=== PATIENT | female | born 1940 | race Caucasian/White ===

== ENCOUNTER → 2023-03-31 | Outpatient (CLI) | payer MEDICARE, BC ==
--- NOTE | 2023-04-01 07:30 | BD ---
EXAMINATION TYPE: Axial Bone Density DATE OF EXAM: 03/31/2023 CLINICAL HISTORY: 82 years old Female. ICD-10 CODE: M81.0 OSTEOPOROSIS Height: 63.5 Weight: 158.4 FRAX RISK QUESTIONS: Alcohol (3 or more units per day): no Family History (Parent hip fracture): no Glucocorticoids (More than 3mos): no (Ex: prednisone, prednisolone, methylprednisolone, dexamethasone, and hydrocortisone). History of Fracture in Adulthood: no Secondary Osteoporosis: 1. Type 1 Diabetes: no 2. Hyperthyroidism: no 3. Menopause before 45: no 4. Malnutrition: no 5. Chronic liver disease: no Rheumatoid Arthritis: no Current Tobacco Use: no RISK FACTORS HISTORY OF: Surgery to Spine/Hip(right/left)/Wrist (right/left): no Family History of Osteoporosis: no Active: no Diet low in dairy products/other sources of calcium: yes Postmenopausal woman: yes Lost more than 2 inches in height since high school: no Frequent falls: yes MEDICATIONS: Additional History: EXAM MEASUREMENTS: Bone mineral densitometry was performed using the [employer] System. Bone mineral density as measured about the Lumbar spine is: ----- L1-L4(G/cm2): 1.481 T Score Values are as follows: ----- L1: 1.0 ----- L2: 3.9 ----- L3: 3.5 ----- L4: 1.9 ----- L1-L4: 2.5 Z Score Values are as follows: ----- L1: 2.7 ----- L2: 5.5 ----- L3: 5.2 ----- L4: 3.5 ----- L1-L4: 4.2 Bone mineral density : baseline Bone mineral density about the R hip (g/cm2): 0.896 Bone mineral density about the L hip (g/cm2): 0.855 T Score values are as follows: -----R Neck: -1.6 -----L Neck: -2.2 -----R Total: -0.9 -----L Total: -1.2 Z Score values are as follows: -----R Neck: 0.6 -----L Neck: 0.0 -----R Total: 1.2 -----L Total: 0.9 Bone mineral density : baseline FRAX%s: The graph provided illustrates a 17.3% chance for a major osteoporotic fx and a 5.7% chance f or the hips probability for fx in 10 years time. IMPRESSION: Osteopenia (T Score between -2.5 and -1). There is slightly increased risk of fracture and the patient may be considered for treatment. Re-Screen 2-5 years. NOTE: T-SCORE=SD OF THE YOUNG ADULT MEAN.
--- NOTE | 2023-04-02 15:00 | MM ---
Reason for Exam: Screening (asymptomatic). Last mammogram was performed 3 year(s) and 2 month(s) ago. Risk Values: Liz 5 year model risk: 0.9%. NCI Lifetime model risk: 1.0%. Prior Study Comparison: 01/20/2019 Bilateral Screening Mammogram, [facility]. 01/24/2020 Bilateral Screening Mammogram, [facility]. Tissue Density: There are scattered fibroglandular densities. Findings: Analyzed By CAD. No significant changes when compared with prior studies. No discrete abnormality. Overall Assessment: Negative, BI-RAD 1 Management: Screening Mammogram of both breasts in 1 year. A clinical breast exam by your physician is recommended on an annual basis and results should be correlated with mammographic findings. Electronically signed and approved by: Hipolito Cadet M.D. Radiologis
== END | disposition home or self-care (01) ==
LOC: RADBDWWP 15:45
PROVIDERS: ATTEND Internal Medicine Geriatric Medicine
DX: Z12.31 Encounter for screening mammogram for malignant neoplasm of breast (principal); M81.0 Age-related osteoporosis without current pathological fracture; M85.89 Other specified disorders of bone density and structure, multiple sites; Z78.0 Asymptomatic menopausal state
CPT/HCPCS: 77063; 77067; 77080